=== PATIENT | male | born 1980 | race Caucasian/White ===

== ENCOUNTER 2017-07-02 09:10 | Emergency (ER) | payer BC ==
[2017-07-02 09:18] VITALS: BP 128/82
--- NOTE | 2017-07-02 09:34 | UC ---
UC General HPI - HPI Summary HPI Summary: Pt is a 36 male who presents with complaints of body aches, low back achiness, fatigue, intermittent sweats. Pt states 2 children were sick last week with fevers. [place] when [place] developed fatigue and loss of energy. pt states felt clammy. Pt states went home, took 2 APAP PM and slept through the night. Pt states woke a few times sweaty. pt states yesterday had no energy, body aches. States stayed in bed most the day. This morning slight sore throat and low back pain. States took motrin with improved discomfort. No documented fever, but felt clammy. Children with fever this morning. no cough. No sinus congestion, ear pain. no rash. Decreased appetite. No dysuria, no hematuria. No diarrhea. No blood or black stool. - History of Current Complaint Chief Complaint: UCGeneralIllness Stated Complaint: BODYACHES CHILLS Time Seen by Provider: 07/02/17 09:18 Hx Obtained From: Patient Onset/Duration: Gradual Onset, Lasting Days Timing: Constant Onset Severity: Mild Current Severity: Mild Pain Intensity: 2 Associated Signs & Symptoms: Positive: Back Pain - Allergy/Home Medications Allergies/Adverse Reactions: Allergies Allergy/AdvReac Type Severity Reaction Status Date / Time No Known Allergies Allergy Verified 07/02/17 09:14 Home Medications: Home Medications Ibuprofen TAB* [Advil TAB*] 2 tab PO PRN 07/02/17 [History] PMH/Surg Hx/FS Hx/Imm Hx Previously Healthy: Yes Other History Of: Negative For: Anticoagulant Therapy - Surgical History Surgical History: None - Family History Known Family History: Positive: None - Social History Occupation: Employed Full-time Lives: With Family Alcohol Use: Rare Substance Use Type: None Smoking Status (MU): Never Smoked Tobacco Review of Systems Constitutional: Fever, Fatigue Skin: Negative Eyes: Negative ENT: Negative Respiratory: Negative Cardiovascular: Negative Gastrointestinal: Negative Genitourinary: Negative Motor: Negative Neurovascular: Negative Musculoskeletal: Arthralgia Neurological: Negative Psychological: Negative All Other Systems Reviewed And Are Negative: Yes Physical Exam Triage Information Reviewed: Yes Appearance: Well-Appearing, No Pain Distress, Well-Nourished Vital Signs: Initial Vital Signs Temp 97.7 F 07/02/17 09:14 Pulse 99 07/02/17 09:14 Resp 16 07/02/17 09:14 BP 128/82 07/02/17 09:14 Pulse Ox 97 07/02/17 09:14 Vital Signs Reviewed: Yes Eye Exam: Normal Eyes: Positive: Conjunctiva Clear. Negative: Conjunctiva Inflamed, Discharge ENT Exam: Normal ENT: Positive: Normal ENT inspection, Hearing grossly normal, Pharynx normal, TMs normal Dental Exam: Normal Neck exam: Normal Neck: Positive: Supple, Nontender, No Lymphadenopathy Respiratory Exam: Normal Respiratory: Positive: Chest non-tender, Lungs clear, Normal breath sounds, No respiratory distress, No accessory muscle use Cardiovascular Exam: Normal Cardiovascular: Positive: RRR, No Murmur, Pulses Normal Abdominal Exam: Normal Abdomen Description: Positive: Nontender, No Organomegaly, Soft Bowel Sounds: Positive: Present Musculoskeletal Exam: Normal Musculoskeletal: Positive: Strength Intact, ROM Intact, No Edema Neurological Exam: Normal Neurological: Positive: Alert, Muscle Tone Normal Psychological Exam: Normal Skin Exam: Normal Skin: Negative: rashes Course/Dx - Course Course Of Treatment: Pt presents with body aches, fatigue progessive x 2 days with development of sore throat. family members with similar. Pt with non concerning exam and VSS. Likely viral syndrome - will check urine, rapid strep , influenza. Pt declined monon. reviewed with pt at length symprtomatic tx, secretion preautions, hydration, return precautions. Pt given work note. pt states understanding and agreement with plan - Differential Dx - Multi-Symptom Provider Diagnoses: viral syndrome. mylagias Discharge - Discharge Plan Condition: Stable Disposition: HOME Patient Education Materials: Dehydration (ED), Viral Syndrome (ED) Forms: *Work Release Referrals: Mariusz Mercer MD [Primary Care Provider] - Additional Instructions: - Stay well hydrated. Drink plenty of non-alcoholic, non-caffinated beverages - It is recommended you alternate ibuprofen (Motrin, Advil) and tylenol every 3 hours for pain or fever. Take with food - It is okay if you are unable to eat, but is it very important you stay hydrated - get plenty of rest - Viral infections are spread by secretions. Do not share eating, drinking utensils. Throw out your toothbrush when your symptoms resolved Clean items that may get your secretions such as cell phones, ipads, computer mouse, television remotes - If you develop uncontrolled fevers, rash, vomiting or any other symptoms, it is recommended you contact your doctor or go to the emergency department for futher testing such as blood work and IV fluids
== END 2017-07-02 10:30 | disposition home or self-care (01) ==
LOC: UCEAST 09:10
DX: B34.9 Viral infection, unspecified (principal); M79.1 Myalgia
CPT/HCPCS: 81003; 87502; 87651; 99211; G0463